=== PATIENT | male | born 1945 | race Caucasian/White ===

== ENCOUNTER → 2024-02-29 15:19 | Outpatient (BNVA) | payer OTHER, SELFPAY | PROVIDERS: Visit Provider Podiatrist Foot & Ankle Surgery | DX: L60.3 Nail dystrophy (principal); L90.9 Atrophic disorder of skin, unspecified; M24.572 Contracture, left ankle; M77.42 Metatarsalgia, left foot; G62.9 Polyneuropathy, unspecified; E11.42 Type 2 diabetes mellitus with diabetic polyneuropathy | CPT/HCPCS: 11721; 99203 ==

== ENCOUNTER → 2024-05-09 13:03 | Outpatient (BNVA) | payer OTHER, SELFPAY | PROVIDERS: Visit Provider Podiatrist Foot & Ankle Surgery | DX: L60.3 Nail dystrophy (principal); L90.9 Atrophic disorder of skin, unspecified; M24.572 Contracture, left ankle; M77.42 Metatarsalgia, left foot; G62.9 Polyneuropathy, unspecified; E11.42 Type 2 diabetes mellitus with diabetic polyneuropathy | CPT/HCPCS: 11721 ==

== ENCOUNTER → 2024-07-11 13:38 | Outpatient (BNVA) | payer OTHER, SELFPAY | PROVIDERS: Visit Provider Podiatrist Foot & Ankle Surgery | DX: L60.3 Nail dystrophy (principal); L90.9 Atrophic disorder of skin, unspecified; M24.572 Contracture, left ankle; M77.42 Metatarsalgia, left foot; G62.9 Polyneuropathy, unspecified; E11.42 Type 2 diabetes mellitus with diabetic polyneuropathy | CPT/HCPCS: 11721 ==

== ENCOUNTER → 2024-10-07 15:33 | Outpatient (BNVA) | payer OTHER, SELFPAY | PROVIDERS: PCP Internal Medicine; Visit Provider Podiatrist Foot & Ankle Surgery | DX: L60.3 Nail dystrophy (principal); L90.9 Atrophic disorder of skin, unspecified; M24.572 Contracture, left ankle; M77.42 Metatarsalgia, left foot; G62.9 Polyneuropathy, unspecified; E11.69 Type 2 diabetes mellitus with other specified complication | CPT/HCPCS: 11721 ==

== ENCOUNTER → 2024-12-09 14:28 | Outpatient (BNVA) | payer OTHER, SELFPAY | PROVIDERS: PCP Internal Medicine; Visit Provider Podiatrist Foot & Ankle Surgery | DX: E11.42 Type 2 diabetes mellitus with diabetic polyneuropathy (principal); L60.3 Nail dystrophy; G62.9 Polyneuropathy, unspecified; R60.9 Edema, unspecified | CPT/HCPCS: 11721; 99213 ==

== ENCOUNTER → 2025-02-11 14:13 | Outpatient (BNVA) | payer OTHER, SELFPAY | PROVIDERS: PCP Internal Medicine; Visit Provider Podiatrist Foot & Ankle Surgery | DX: E11.42 Type 2 diabetes mellitus with diabetic polyneuropathy (principal); L60.3 Nail dystrophy; G62.9 Polyneuropathy, unspecified; R60.9 Edema, unspecified | CPT/HCPCS: 11721; 99213 ==

== ENCOUNTER → 2025-05-06 14:13 | Outpatient (BNVA) | payer OTHER, SELFPAY | PROVIDERS: PCP Internal Medicine; Visit Provider Podiatrist Foot & Ankle Surgery | DX: E11.42 Type 2 diabetes mellitus with diabetic polyneuropathy (principal); L60.3 Nail dystrophy; G62.9 Polyneuropathy, unspecified; R60.9 Edema, unspecified | CPT/HCPCS: 11721 ==